=== PATIENT | male | born 1980 | race Caucasian/White ===

== ENCOUNTER 2020-01-14 12:33 | Emergency (ER) | payer MEDICAID ==
[2020-01-14 14:21] VITALS: BP 142/91; PULSE 77
[2020-01-14] MEDS ORDERED: hydrOXYzine HCl 25 MG Tab ONE (14:45)
--- NOTE | 2020-01-14 15:14 | EDM.PDOC ---
ED HPI GENERAL MEDICAL PROBLEM - General Chief Complaint: General Stated Complaint: Light headed, racing pulse Time Seen by Provider: 01/14/20 14:15 Source of Information: Reports: Patient History Limitations: Reports: No Limitations - History of Present Illness INITIAL COMMENTS - FREE TEXT/NARRATIVE: Pt states he was sitting at home and felt as if his heart was racing. This is not first time. Has known h/o anxiety. States was worried that he might have COVID and the more he thought about it the more stress he felt and states he felt as if his heart was beating out of his chest. He states he was coughing a little last night and with cough and chest tightness this afternoon he states he began worrying that something might be wrong with his heart. States same thing happened two weeks ago and he had to go to an ER in [place], [place] where he was dx with anxiety. He has not been sick. He does not have a h/o heart disease. Onset: Today Onset Date: 01/14/20 Onset Time: 12:00 Duration: Resolved Prior to Arrival Location: Reports: Chest Quality: Reports: Same as Previous Episode, Sharp Severity: Mild Improves with: Reports: Rest Worsens with: Reports: None Associated Symptoms: Reports: Chest Pain, Cough - Related Data Allergies Allergy/AdvReac Type Severity Reaction Status Date / Time No Known Allergies Allergy Verified 01/14/20 13:33 Home Meds: Home Meds Aspirin 81 mg PO DAILY 01/14/20 [History] Omeprazole 20 mg PO DAILY 01/14/20 [History] lisinopriL [Lisinopril] 20 mg PO DAILY 01/14/20 [History] Past Medical History Gastrointestinal History: Reports: GERD Genitourinary History: Reports: None Psychiatric History: Reports: Anxiety - Past Surgical History GI Surgical History: Reports: None Social & Family History - Family History Family Medical History: Noncontributory - Tobacco Use Smoking Status *Q: Current Every Day Smoker Years of Tobacco use: 20 Packs/Tins Daily: 2 Used Tobacco, but Quit: No Second Hand Smoke Exposure: Yes - Caffeine Use Caffeine Use: Reports: Coffee, Soda ED ROS GENERAL - Review of Systems Review Of Systems: See Below Constitutional: Reports: No Symptoms HEENT: Reports: No Symptoms Respiratory: Reports: Cough Cardiovascular: Reports: Chest Pain Endocrine: Reports: No Symptoms GI/Abdominal: Reports: No Symptoms. Denies: Nausea, Vomiting : Reports: No Symptoms Musculoskeletal: Denies: Shoulder Pain, Arm Pain, Back Pain, Muscle Pain, Muscle Stiffness Skin: Reports: No Symptoms Neurological: Reports: No Symptoms Psychiatric: Reports: Anxiety ED EXAM, GENERAL - Physical Exam Exam: See Below Exam Limited By: No Limitations General Appearance: Alert, WD/WN, No Apparent Distress, Anxious Ears: Normal External Exam Nose: Normal Inspection Throat/Mouth: Normal Inspection, Normal Lips, Normal Teeth, Normal Gums, Normal Oropharynx, Normal Voice, No Airway Compromise Head: Atraumatic Neck: Normal Inspection, Supple, Non-Tender, Full Range of Motion Respiratory/Chest: No Respiratory Distress, Lungs Clear, Normal Breath Sounds, No Accessory Muscle Use, Chest Non-Tender. No: Respiratory Distress, Decreased Breath Sounds Cardiovascular: Normal Peripheral Pulses, Regular Rate, Rhythm, No Edema, No Gallop, No JVD, No Murmur, No Rub GI/Abdominal: Normal Bowel Sounds Back Exam: Full Range of Motion Extremities: Normal Inspection, Normal Range of Motion Neurological: Alert, Oriented, CN II-XII Intact Psychiatric: Anxious Skin Exam: Warm, Dry, Intact, Normal Color EKG INTERPRETATION EKG Date: 01/14/20 Time: 14:10 Rhythm: NSR Rate (Beats/Min): 72 [place]: Normal P-Wave: Present QRS: Normal ST-T: Normal QT: Normal Comparison: NA - No Prior EKG (no EKG and patient asymptomatic at time) Course - Vital Signs Last Recorded V/S: Last Vital Signs Temp 97.5 F 01/14/20 14:05 Pulse 77 01/14/20 14:10 Resp 16 01/14/20 14:10 BP 142/91 H 01/14/20 14:10 Pulse Ox 96 01/14/20 14:10 - Orders/Labs/Meds Labs: Laboratory Tests 01/14/20 Range/Units 12:48 COVID-19 ([facility]) Negative - Re-Assessments/Exams Free Text/Narrative Re-Assessment/Exam: 01/14/20 15:22 Pt had actually felt better by time of arrival and after report of a negative COVID test he felt relieved a ready for discharge. He was given a RX for 8 Atarax tabs. Advised to follow-up with his primary. Departure - Departure Time of Disposition: 14:50 Disposition: Home, Self-Care 01 Condition: Good Clinical Impression: Anxiety - Discharge Information *PRESCRIPTION DRUG MONITORING PROGRAM REVIEWED*: Not Applicable *COPY OF PRESCRIPTION DRUG MONITORING REPORT IN PATIENT CARLINE: Not Applicable (pt discharged home with follow-up instructions.) Instructions: Generalized Anxiety Disorder, Adult, Hydroxyzine capsules or tablets Forms: ED Department Discharge Additional Instructions: Take Hydroxzine 25mg every 6-8 hours as needed for anxiety Make sure to go to your appointment at the clinic If symptoms worsen or persist return to the ER or clinic If you have any questions or concerns please call us at [phone] Sepsis Event Note (ED) - Evaluation Sepsis Screening Result: No Definite Risk - Focused Exam Vital Signs: Vital Signs Temp Pulse Resp BP Pulse Ox 01/14/20 14:10 77 16 142/91 H 96 01/14/20 14:05 97.5 F 80 16 150/106 H 96
== END 2020-01-14 14:52 | disposition home or self-care (01) ==
LOC: LB.ED 12:33
DX: F41.9 Anxiety disorder, unspecified (principal); K21.9 Gastro-esophageal reflux disease without esophagitis; F17.210 Nicotine dependence, cigarettes, uncomplicated; Z79.82 Long term (current) use of aspirin; Z79.899 Other long term (current) drug therapy; Z20.828 Contact with and (suspected) exposure to other viral communicable diseases
CPT/HCPCS: 93005; 99285-25; A9270-GY; U0002

== ENCOUNTER 2022-07-27 15:56 | Emergency (ER) | payer MEDICAID ==
[2022-07-27] MEDS ORDERED: Ciprofloxacin 0.3% Ophth Soln 2.5 ML Bottle ONE (16:40)
== END 2022-07-27 16:45 | disposition home or self-care (01) ==
LOC: LB.ED 15:56
DX: T15.01XA Foreign body in cornea, right eye, initial encounter (principal); H10.31 Unspecified acute conjunctivitis, right eye; K21.9 Gastro-esophageal reflux disease without esophagitis; Z79.82 Long term (current) use of aspirin; Z79.899 Other long term (current) drug therapy
CPT/HCPCS: 99282; A9270-GY

== ENCOUNTER 2024-09-27 18:05 | Emergency (ER) | payer MEDICAID ==
[2024-09-27] MEDS ORDERED: Sodium Chloride 0.9% 10 ML Syringe FLUSH PRN (18:37)
[2024-09-27 18:58] LABS: HEMATOCRIT 43.3 % (40.0-54.0); HEMOGLOBIN 15.1 g/dL (13.0-18.0); MEAN CORPUSCULAR HEMOGLOBIN 30.7 pg (27.0-32.0); MEAN CORPUSCULAR HGB CONC 34.9 g/dL (31.0-35.0); MEAN PLATELET VOLUME 11.2 fL (6.0-10.0); RED BLOOD CELL COUNT 4.92 M/uL (4.50-6.50); RED CELL DISTRIBUTION WIDTH 12.9 % (11.0-16.0); WHITE BLOOD CELL COUNT,WBC 10.7 K/uL (4.0-11.0)
[2024-09-27] MEDS: Sodium Chloride 0.9% 1,000 ML IV SCH (19:00)
[2024-09-27 19:16] LABS: A/G RATIO 1.2 (0.8-2.0); ALBUMIN 4.2 g/dL (3.4-5.0); ANION GAP 14.6 mmol/L (5.0-15.0); BILIRUBIN TOTAL 0.6 mg/dL (0.0-1.0); BUN/CREATININE RATIO 10.2 (6-25); CALCIUM 9.5 mg/dL (8.5-10.1); CARBON DIOXIDE,CO2 27.4 mmol/L (21.0-32.0); CREATININE 1.08 mg/dL (0.70-1.30); EST CRCL DRUG DOSING (CG) 88.19 mL/min; MAGNESIUM 1.9 mg/dL (1.8-2.4); PROTEIN TOTAL,TP 7.8 g/dL (6.4-8.2)
[2024-09-27] MEDS: Metoprolol Succinate 25 MG Tab.ER PO ONE (20:08)
[2024-09-27 20:25] LABS: APPEARANCE,URINE CLEAR (CLEAR); COLOR,URINE YELLOW; GLUCOSE,URINE NEGATIVE (NEGATIVE); KETONES,URINE NEGATIVE (NEGATIVE); PROTEIN,URINE NEGATIVE (NEGATIVE)
[2024-09-27 20:26] LABS: BILIRUBIN,URINE NEGATIVE (NEGATIVE); LEUKOCYTE ESTERASE,URINE NEGATIVE (NEGATIVE); NITRITE,URINE NEGATIVE (NEGATIVE); OCCULT BLOOD,URINE NEGATIVE (NEGATIVE); UROBILINOGEN,URINE 0.2 E.U./dL (0.2-1.0)
== END 2024-09-27 20:36 | disposition home or self-care (01) ==
LOC: LB.ED 18:05
DX: I10 Essential (primary) hypertension (principal); K21.9 Gastro-esophageal reflux disease without esophagitis; F17.200 Nicotine dependence, unspecified, uncomplicated; Z91.030 Bee allergy status; Z79.82 Long term (current) use of aspirin; Z79.899 Other long term (current) drug therapy
CPT/HCPCS: 36415; 71045; 80053; 81003; 83735; 83880; 85027; 87428-QW; 93005; 96360; 99284; 99285-25; A9270-GY; J7030